=== PATIENT | female | born 1970 | race Caucasian/White ===

== ENCOUNTER 2021-02-26 19:19 | Emergency (ER) | payer OTHER ==
[~2021-02-26] VITALS: Ht 170.2 cm; Wt 74.3 kg
[~2021-02-26 19:19] MED LIST: GINK60TA PO; HYDR-3237 PO; IBUP-1623 PO; IRON PO; MULT-257 PO; NAPR220C2 PO; NORE5TAB2 PO
[2021-02-26 19:39] VITALS: BP 144/85
--- NOTE | 2021-02-26 20:57 | NUR ---
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
--- NOTE | 2021-02-26 21:18 | NUR ---
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
== END 2021-02-26 21:29 | disposition left against medical advice (07) ==
LOC: ED 19:30
DX: R05 Cough (principal); R52 Pain, unspecified; Z53.21 Procedure and treatment not carried out due to patient leaving prior to being seen by health care provider